=== PATIENT | female | born 1955 | race Caucasian/White ===

== ENCOUNTER 2022-01-08 09:56 | Inpatient (IN) | payer BC, SELFPAY ==
[~2022-01-08 09:56] MED LIST: Iopamidol-370 76% 500 ML 1 ML ONE
[2022-01-08 10:26] LABS: #Eosinphils 0.1 thou/uL (0.0-0.7); #Lymphocytes 2.3 thou/uL (1.20-3.40); #Monocytes 0.4 thou/uL (0.11-0.59); #Neutrophils 4.2 thou/uL (1.40-6.50); %Basophils 0.6 % (0.0-1.0); %Eosinophils 2.1 % (0.0-10.0); %Lymphocytes 32.8 % (21.0-51.0); %Monocytes 5.1 % (0.0-10.0); %Neutrophils 59.4 % (42.0-75.0); Hemoglobin 10.4 g/dL (12.0-16.0); Mean Corpuscular HGB CONC 31.2 g/dL (32.0-36.0); Mean Corpuscular Hemoglobin 28.2 pg (27.0-31.0); Mean Corpuscular Volume 90.5 fL (78.0-98.0); Mean Platelet Volume 8.2 fL (7.4-10.4); Platelet Count 304 thou/uL (130-400); RBC Distribution Width 13.1 % (11.5-14.5)
[2022-01-08] MEDS ORDERED: Tenecteplase 50 MG - STEMI KIT ONE (10:33)
[2022-01-08 10:39] LABS: Prothrombin Time 12.8 sec (12.0-14.7)
[2022-01-08 10:40] LABS: PTT 24.3 sec (22.9-36.1)
[2022-01-08 10:49] LABS: ALT (SGPT) 14 U/L (8-55); AST (SGOT) 21 U/L (5-34); Albumin 3.8 g/dL (3.4-4.8); Alkaline Phosphatase 97 U/L (40-110); Anion Gap 12 mmol/L (10-20); BUN (Urea Nitrogen) 13 mg/dL (9.8-20.1); Bilirubin, Total 0.9 mg/dL (0.2-1.2); Calc. Creatinine Clearance 0 mL/min (70-130); Calcium 9.3 mg/dL (7.8-10.44); Carbon Dioxide 25 mmol/L (23-31); Chloride 106 mmol/L (98-107); Estimated GFR 69; Globulin 3.2 g/dL (2.4-3.5); Glucose 148 mg/dL (80-115); Potassium 3.8 mmol/L (3.5-5.1); Sodium 139 mmol/L (136-145)
[2022-01-08] MEDS ORDERED: cloNIDine 0.1 MG TAB PO PRN (14:37)
[2022-01-08 14:41] VITALS: BMI 31.5
[2022-01-08] MEDS ORDERED: Dextrose 5% in Water 1,000 ML IV PRN (14:45)
[2022-01-08] MEDS ORDERED: Dextrose 50% Abboject 50 ML SYRINGE IVP PRN (14:45)
[2022-01-08] MEDS: metFORMIN 500 MG TAB PO SCH (17:13)
[2022-01-08 17:14] LABS: SARS-CoV-2 NAA Rapid Test Not Detected (NotDetected)
[2022-01-08] MEDS: Rosuvastatin 20 MG TAB PO SCH (20:30)
[2022-01-08] MEDS: Lisinopril 10 MG TAB PO SCH (20:31)
[2022-01-08] MEDS: HumuLIN 70/30 (300 UNITS/3 ML VIAL) SC SCH (20:31)
[2022-01-08] MEDS: Carvedilol 6.25 MG TAB PO SCH (20:31)
[2022-01-08] MEDS: Insulin Glargine 30 UNITS/0.3 ML VIAL SC SCH (20:32)
[2022-01-08] MEDS ORDERED: Insulin Glargine 30 UNITS/0.3 ML VIAL SC SCH (21:00)
[2022-01-08] MEDS ORDERED: Sulfameth/Trimethoprim DS 800-160mg TAB PO SCH (22:30)
[2022-01-08] MEDS ORDERED: Phenazopyridine HCl 100 MG TAB PO SCH (22:30)
[2022-01-08 22:36] LABS: Bacteria/HPF None Seen HPF (None Seen); Bilirubin Negative (Negative); Blood, Urine Negative (Negative); Clarity Clear (Clear); Glucose, Urine (Dipstick) 300 mg/dL (Negative); Ketone, Urine Negative (Negative); Leukocyte 500 Leu/uL (Negative); Nitrite Negative (Negative); Protein, Urine (Dipstick) 20 mg/dL (Neg-Trace); RBC/HPF 0-3 HPF (0-3); Specific Gravity, Urine 1.037 (1.002-1.036); Squamous Epithelial 0-3 HPF (0-3); Urobilinogen Normal mg/dL (Less than 2); WBC/HPF Greater than 50 HPF (0-3)
[2022-01-08 22:38] LABS: Urine Culture Reflex Yes Yes
[2022-01-09] MEDS: HumuLIN 70/30 (300 UNITS/3 ML VIAL) SC SCH ×2 (07:25→18:50)
[2022-01-09] MEDS: Empagliflozin 25 MG TAB PO SCH (07:49)
[2022-01-09] MEDS: metFORMIN 500 MG TAB PO SCH ×2 (07:49→18:50)
[2022-01-09] MEDS: Insulin Glargine 30 UNITS/0.3 ML VIAL SC SCH ×2 (09:20→21:21)
[2022-01-09] MEDS: valACYclovir 500 MG TAB PO SCH (09:24)
[2022-01-09] MEDS: Lisinopril 10 MG TAB PO SCH ×2 (09:24→21:22)
[2022-01-09] MEDS: Carvedilol 6.25 MG TAB PO SCH ×2 (09:24→21:22)
[2022-01-09] MEDS: Sulfameth/Trimethoprim DS 800-160mg TAB PO SCH ×2 (09:24→21:22)
[2022-01-09] MEDS: Phenazopyridine HCl 100 MG TAB PO SCH ×3 (09:34→21:23)
[2022-01-09] MEDS: Insulin Regular 300 UNITS/3 ML VIAL SC PRN (12:18)
[2022-01-09 12:45] LABS: #Eosinphils 0.2 thou/uL (0.0-0.7); #Lymphocytes 2.2 thou/uL (1.20-3.40); #Monocytes 0.3 thou/uL (0.11-0.59); #Neutrophils 4.1 thou/uL (1.40-6.50); %Basophils 0.5 % (0.0-1.0); %Eosinophils 2.6 % (0.0-10.0); %Lymphocytes 32.3 % (21.0-51.0); %Monocytes 4.3 % (0.0-10.0); %Neutrophils 60.3 % (42.0-75.0); Hemoglobin 10.2 g/dL (12.0-16.0); Mean Corpuscular HGB CONC 31.6 g/dL (32.0-36.0); Mean Corpuscular Hemoglobin 28.6 pg (27.0-31.0); Mean Corpuscular Volume 90.6 fL (78.0-98.0); Mean Platelet Volume 8.8 fL (7.4-10.4); Platelet Count 292 thou/uL (130-400); RBC Distribution Width 13.8 % (11.5-14.5); Red Blood Cell (RBC) Count 3.56 mill/uL (4.20-5.40); White Blood Cell (WBC) Count 6.7 thou/uL (4.8-10.8)
[2022-01-09 13:00] LABS: Anion Gap 13 mmol/L (10-20); BUN (Urea Nitrogen) 13 mg/dL (9.8-20.1); Calc. Creatinine Clearance 72 mL/min (70-130); Calcium 9.6 mg/dL (7.8-10.44); Carbon Dioxide 21 mmol/L (23-31); Chloride 107 mmol/L (98-107); Cholesterol 179 mg/dl (< 200 Desired); Estimated GFR 58; Glucose 221 mg/dL (80-115); HDL Cholesterol 45 mg/dL (>60 Neg Risk); LDL Cholesterol, Calculated 108 mg/dL; Sodium 137 mmol/L (136-145); Triglycerides 131 mg/dL (Less than 150)
[2022-01-09 13:08] LABS: Hemoglobin A1c 10.9 % (4.0-6.0)
[2022-01-09] MEDS: Rosuvastatin 20 MG TAB PO SCH (21:22)
[2022-01-10 05:13] LABS: #Eosinphils 0.1 thou/uL (0.0-0.7); #Lymphocytes 2.6 thou/uL (1.20-3.40); #Monocytes 0.3 thou/uL (0.11-0.59); #Neutrophils 4.2 thou/uL (1.40-6.50); %Basophils 0.5 % (0.0-1.0); %Eosinophils 1.7 % (0.0-10.0); %Lymphocytes 35.6 % (21.0-51.0); %Monocytes 4.3 % (0.0-10.0); Hemoglobin 9.9 g/dL (12.0-16.0); Mean Corpuscular HGB CONC 32.7 g/dL (32.0-36.0); Mean Corpuscular Hemoglobin 29.6 pg (27.0-31.0); Mean Corpuscular Volume 90.6 fL (78.0-98.0); Mean Platelet Volume 8.3 fL (7.4-10.4); Platelet Count 275 thou/uL (130-400); RBC Distribution Width 13.2 % (11.5-14.5); Red Blood Cell (RBC) Count 3.36 mill/uL (4.20-5.40); White Blood Cell (WBC) Count 7.3 thou/uL (4.8-10.8)
[2022-01-10 05:39] LABS: Anion Gap 12 mmol/L (10-20); BUN (Urea Nitrogen) 16 mg/dL (9.8-20.1); Calc. Creatinine Clearance 66 mL/min (70-130); Calcium 9.5 mg/dL (7.8-10.44); Carbon Dioxide 22 mmol/L (23-31); Chloride 108 mmol/L (98-107); Estimated GFR 52; Glucose 147 mg/dL (80-115); Potassium 4.1 mmol/L (3.5-5.1); Sodium 138 mmol/L (136-145)
[2022-01-10] MEDS: Sulfameth/Trimethoprim DS 800-160mg TAB PO SCH ×2 (09:30→21:02)
[2022-01-10] MEDS: Phenazopyridine HCl 100 MG TAB PO SCH ×3 (09:30→21:03)
[2022-01-10] MEDS: Lisinopril 10 MG TAB PO SCH ×2 (09:31→21:03)
[2022-01-10] MEDS: Carvedilol 6.25 MG TAB PO SCH ×2 (09:31→21:04)
[2022-01-10] MEDS: Empagliflozin 25 MG TAB PO SCH (09:31)
[2022-01-10] MEDS: metFORMIN 500 MG TAB PO SCH ×2 (09:31→17:10)
[2022-01-10] MEDS: valACYclovir 500 MG TAB PO SCH (09:31)
[2022-01-10] MEDS: Insulin Regular 300 UNITS/3 ML VIAL SC PRN (10:28)
[2022-01-10] MEDS: Insulin Glargine 30 UNITS/0.3 ML VIAL SC SCH ×2 (10:28→21:00)
[2022-01-10] MEDS: HumuLIN 70/30 (300 UNITS/3 ML VIAL) SC SCH ×2 (10:34→17:10)
[2022-01-10] MEDS ORDERED: Ondansetron PF 4 MG/2 ML Vial IVP PRN (12:00)
[2022-01-10] MEDS: Rosuvastatin 20 MG TAB PO SCH (21:03)
[2022-01-11] MEDS ORDERED: Aspirin 81 mg Enteric Coated Tablet PO SCH (09:00)
[2022-01-11] MEDS: Empagliflozin 25 MG TAB PO SCH (09:16)
[2022-01-11] MEDS: Sulfameth/Trimethoprim DS 800-160mg TAB PO SCH (09:16)
[2022-01-11] MEDS: metFORMIN 500 MG TAB PO SCH (09:16)
[2022-01-11] MEDS: Carvedilol 6.25 MG TAB PO SCH (09:16)
[2022-01-11] MEDS: Lisinopril 10 MG TAB PO SCH (09:17)
[2022-01-11] MEDS: valACYclovir 500 MG TAB PO SCH (09:17)
[2022-01-11] MEDS: Phenazopyridine HCl 100 MG TAB PO SCH ×2 (09:17→16:55)
[2022-01-11] MEDS: Insulin Glargine 30 UNITS/0.3 ML VIAL SC SCH (09:26)
[2022-01-11] MEDS: HumuLIN 70/30 (300 UNITS/3 ML VIAL) SC SCH ×2 (09:27→20:34)
[2022-01-11 12:15] VITALS: BP 112/53; TEMP 97.8
[2022-01-11] MEDS: Insulin Regular 300 UNITS/3 ML VIAL SC PRN (13:01)
== END 2022-01-11 16:47 | disposition home or self-care (01) | DRG 62 ==
LOC: ERS 09:56 → CCU 11:39 → NEURO 01-09 17:45
PROVIDERS: ADMIT Specialist; ATTEND Specialist
DX: I63.512 Cerebral infarction due to unspecified occlusion or stenosis of left middle cerebral artery (principal); G81.91 Hemiplegia, unspecified affecting right dominant side; Z20.822 Contact with and (suspected) exposure to COVID-19; R29.707 NIHSS score 7; E11.9 Type 2 diabetes mellitus without complications; I10 Essential (primary) hypertension; E78.5 Hyperlipidemia, unspecified; F43.10 Post-traumatic stress disorder, unspecified; E66.9 Obesity, unspecified; Z90.49 Acquired absence of other specified parts of digestive tract; Z95.5 Presence of coronary angioplasty implant and graft; Z79.4 Long term (current) use of insulin; Z79.84 Long term (current) use of oral hypoglycemic drugs; Z79.899 Other long term (current) drug therapy; Z91.14 Patient's other noncompliance with medication regimen; Z68.35 Body mass index [BMI] 35.0-35.9, adult
CPT/HCPCS: 36415; 36416; 37195; 70450; 70496; 70498; 70551; 71045; 80048; 80053; 80061; 81001; 83036; 84484; 85025; 85610; 85730; 87086; 93005; 93306; 94760; J1815; J2405; J3101; Q9967; U0002

== ENCOUNTER 2022-12-13 12:32 | Emergency (ER) | payer MEDICARE ==
[2022-12-13 14:08] LABS: #Eosinphils 0.3 thou/uL (0.0-0.7); #Monocytes 0.4 thou/uL (0.11-0.59); #Neutrophils 3.4 thou/uL (1.40-6.50); %Basophils 0.5 % (0.0-1.0); %Eosinophils 4.4 % (0.0-10.0); %Lymphocytes 34.2 % (21.0-51.0); %Monocytes 5.6 % (0.0-10.0); %Neutrophils 55.1 % (42.0-75.0); Hematocrit 26.1 % (36.0-47.0); Hemoglobin 7.5 g/dL (12.0-16.0); Mean Corpuscular HGB CONC 28.7 g/dL (32.0-36.0); Mean Corpuscular Hemoglobin 23.8 pg (27.0-31.0); Mean Corpuscular Volume 82.9 fl (78.0-98.0); Mean Platelet Volume 9.2 fL (7.4-10.4); Platelet Count 335 10x3/uL (130-400); RBC Distribution Width 16.4 % (11.5-14.5); Red Blood Cell (RBC) Count 3.15 mill/uL (4.20-5.40); White Blood Cell (WBC) Count 6.2 10x3/uL (4.8-10.8)
[2022-12-13 14:26] LABS: ALT (SGPT) 7 U/L (8-55); AST (SGOT) 10 U/L (5-34); Albumin 3.4 g/dL (3.4-4.8); Alkaline Phosphatase 90 U/L (40-110); Anion Gap 11 mmol/L (10-20); BUN (Urea Nitrogen) 10 mg/dL (9.8-20.1); Bilirubin, Total 0.3 mg/dL (0.2-1.2); Calc. Creatinine Clearance 0 mL/min (70-130); Calcium 9.5 mg/dL (7.8-10.44); Carbon Dioxide 23 mmol/L (23-31); Chloride 110 mmol/L (98-107); Estimated GFR 68; Glucose 100 mg/dL (80-115); Potassium 3.7 mmol/L (3.5-5.1); Protein, Total 6.4 g/dL (5.8-8.1); Sodium 140 mmol/L (136-145)
[2022-12-13 14:33] LABS: Burr Cells SLIGHT = 2-5 cells HPF (0-1); CellaVision Operator ID LAB.KB; Hypochromia SLIGHT = 6-15 cells HPF (0-5); Ovalocytes SLIGHT = 2-5 cells HPF (0-1); Platelet Adequacy Comment Platelets Normal; Polychromasia SLIGHT = 2-3 cells HPF (0-2)
[2022-12-13] MEDS ORDERED: Morphine 4 MG/ML VIAL ONE ×2 (14:50→16:39)
== END 2022-12-13 17:02 | disposition home or self-care (01) ==
LOC: ERS 12:32
DX: R10.2 Pelvic and perineal pain (principal); E11.9 Type 2 diabetes mellitus without complications; I10 Essential (primary) hypertension; Z79.4 Long term (current) use of insulin; Z79.899 Other long term (current) drug therapy
CPT/HCPCS: 36415; 80053; 85025; 96372; 99283; J2270

== ENCOUNTER 2023-01-03 11:53 | Outpatient (CLI) | payer MEDICARE, OTHER | END 2023-01-03 11:54 | disposition home or self-care (01) | LOC: PET 11:53 | PROVIDERS: ATTEND Obstetrics & Gynecology Gynecologic Oncology | DX: C51.9 Malignant neoplasm of vulva, unspecified (principal); C77.4 Secondary and unspecified malignant neoplasm of inguinal and lower limb lymph nodes; L04.1 Acute lymphadenitis of trunk | CPT/HCPCS: 78815; A9552 ==

== ENCOUNTER 2023-01-22 13:18 | Outpatient (CLI) | payer MEDICARE, OTHER ==
[2023-01-22] MEDS ORDERED: Magnevist 469MG/ML 20 ML VIAL ONE (16:09)
== END 2023-01-22 13:19 | disposition home or self-care (01) ==
LOC: BICMRI 13:18
PROVIDERS: ATTEND Radiology Radiation Oncology
DX: C51.9 Malignant neoplasm of vulva, unspecified (principal); S73.192A Other sprain of left hip, initial encounter
CPT/HCPCS: A9579

== ENCOUNTER 2023-01-30 10:50 | Outpatient (CLI) | payer MEDICARE ==
[2023-01-30 12:16] LABS: Bilirubin Neg (Negative); Blood, Urine 10 (Negative); Clarity Slightly Cloudy (Clear); Glucose, Urine (Dipstick) Normal (Negative); Ketone, Urine Negative (Negative); Leukocyte 500 (Negative); Nitrite Negative (Negative); Protein, Urine (Dipstick) 30 mg/dl (Neg-Trace); Urobilinogen Normal mg/dL (Less than 2)
[2023-01-30 12:28] LABS: Hematocrit 26.7 % (34.9-44.5); Hemoglobin 8.6 g/dL (12.0-15.5); Mean Corpuscular HGB CONC 32.2 g/dL (32.0-36.0); Mean Corpuscular Hemoglobin 27.8 pg (27.0-33.0); Mean Corpuscular Volume 86.4 fl (81.6-98.3); Mean Platelet Volume 11.5 fl (7.4-10.4); Platelet Count 70 10x3/uL (150-450); RBC Distribution Width 15.8 % (11.5-14.5); Red Blood Cell (RBC) Count 3.09 10x6/uL (3.90-5.03); White Blood Cell (WBC) Count 2.6 10x3/uL (3.5-10.5)
[2023-01-30 12:31] LABS: Bacteria/HPF 2+ HPF (None Seen); Mucous/LPF Rare LPF (<2+); RBC/HPF 0-3 HPF (0-3); WBC/HPF 21-50 HPF (0-3)
[2023-01-30 12:43] LABS: PTT 24.9 sec (22.0-33.0); Prothrombin Time 10.4 sec (9.5-12.1)
[2023-01-30 13:08] LABS: Anion Gap 13 mmol/L (10-20); BUN (Urea Nitrogen) 9 mg/dL (9.8-20.1); Calc. Creatinine Clearance 0 mL/min (70-130); Carbon Dioxide 25 mmol/L (23-31); Chloride 110 mmol/L (98-107); Estimated GFR 97; Glucose 86 mg/dL (80-115); Potassium 3.9 mmol/L (3.5-5.1); Sodium 144 mmol/L (136-145)
== END 2023-01-30 10:51 | disposition home or self-care (01) ==
LOC: LABBT 10:50
PROVIDERS: ATTEND Urology
DX: Z01.818 Encounter for other preprocedural examination (principal); C51.9 Malignant neoplasm of vulva, unspecified
CPT/HCPCS: 80048; 81001; 85027; 85610; 85730; 87086; 93005; 93010

== ENCOUNTER 2023-02-05 07:28 | Day surgery (SDC) | payer MEDICARE ==
[2023-01-30 11:20] VITALS: BMI 34.0
[2023-02-05] MEDS ORDERED: Vancomycin 1 GM/200 ML (FROZEN) BAG ONE (08:36)
[2023-02-05 08:41] LABS: #Eosinphils 0.1 thou/uL (0.0-0.7); #Monocytes 0.4 thou/uL (0.11-0.59); #Neutrophils 2.6 thou/uL (1.40-6.50); %Basophils 0.5 % (0.0-1.0); %Eosinophils 1.7 % (0.0-10.0); %Lymphocytes 26.8 % (21.0-51.0); %Neutrophils 61.8 % (42.0-75.0); Hemoglobin 8.4 g/dL (12.0-16.0); Mean Corpuscular HGB CONC 31.1 g/dL (32.0-36.0); Mean Corpuscular Hemoglobin 27.8 pg (27.0-31.0); Mean Corpuscular Volume 89.4 fl (78.0-98.0); Mean Platelet Volume 10.5 fL (7.4-10.4); Platelet Count 191 10x3/uL (130-400); RBC Distribution Width 17.8 % (11.5-14.5); Red Blood Cell (RBC) Count 3.02 mill/uL (4.20-5.40); White Blood Cell (WBC) Count 4.2 10x3/uL (4.8-10.8)
[2023-02-05] MEDS ORDERED: SUGAMMADEX SODIUM 200 MG/2 ML VIAL ONE (09:05)
[2023-02-05] MEDS ORDERED: fentaNYL PF 100 MCG/2 ML SYRINGE ONE (09:05)
[2023-02-05] MEDS ORDERED: LevoFLOXacin 500 mg/D5W 100 ML BAG ONE (09:19)
[2023-02-05] MEDS ORDERED: Ondansetron PF 4 MG/2 ML Vial ONE (09:36)
[2023-02-05] MEDS ORDERED: Lidocaine 1% PF 5 ML VIAL ONE (09:36)
[2023-02-05] MEDS ORDERED: PROPOFOL 200 MG/20 ML VIAL ONE (09:36)
[2023-02-05] MEDS ORDERED: Dexamethasone 20 MG/5 ML VIAL ONE (09:36)
[2023-02-05] MEDS ORDERED: fentaNYL 50 mcg/mL 1 mL Vial ONE ×2 (10:08→10:23)
[2023-02-05] MEDS ORDERED: HYDROmorphone 0.5 MG/0.5 ML SYRINGE ONE (10:28)
[2023-02-05] MEDS ORDERED: Phenazopyridine HCl 100 MG TAB ONE (10:29)
[2023-02-05] MEDS ORDERED: Oxybutynin 5 MG TAB ONE (10:30)
== END 2023-02-05 13:12 | disposition home or self-care (01) ==
LOC: SDC 07:28
PROVIDERS: ATTEND Urology
PROC: 0T7D8ZZ Dilation of Urethra, Via Natural or Artificial Opening Endoscopic (ICD-10-PCS; principal; 2023-02-05)
DX: C51.9 Malignant neoplasm of vulva, unspecified (principal); E11.9 Type 2 diabetes mellitus without complications; I10 Essential (primary) hypertension; E78.5 Hyperlipidemia, unspecified; F43.10 Post-traumatic stress disorder, unspecified; I25.10 Atherosclerotic heart disease of native coronary artery without angina pectoris; Z87.59 Personal history of other complications of pregnancy, childbirth and the puerperium; Z90.49 Acquired absence of other specified parts of digestive tract; Z79.4 Long term (current) use of insulin; Z79.899 Other long term (current) drug therapy
CPT/HCPCS: 52281; 82962; 85025; 86850; 86900; 86901; J3010; J3370; 36416; J1100; J1170; J1956; J2405; J2704

== ENCOUNTER 2023-02-13 08:25 | Day surgery (SDC) | payer MEDICARE ==
[2023-02-13 09:34] VITALS: BP 126/69; TEMP 98
[2023-02-13] MEDS ORDERED: FLU VACC QS2023(65UP)/MF59C/PF 60 MCG/0.5 ML SYRINGE IM ONE (12:00)
== END 2023-02-13 12:04 | disposition home or self-care (01) ==
LOC: CT 08:25
PROVIDERS: ATTEND Urology
PROC: 0T9B30Z Drainage of Bladder with Drainage Device, Percutaneous Approach (ICD-10-PCS; principal; 2023-02-13)
DX: C51.9 Malignant neoplasm of vulva, unspecified (principal); E11.9 Type 2 diabetes mellitus without complications; R30.0 Dysuria; I10 Essential (primary) hypertension; F43.10 Post-traumatic stress disorder, unspecified; I25.10 Atherosclerotic heart disease of native coronary artery without angina pectoris; E78.5 Hyperlipidemia, unspecified; Z86.73 Personal history of transient ischemic attack (TIA), and cerebral infarction without residual deficits; Z90.49 Acquired absence of other specified parts of digestive tract; Z79.4 Long term (current) use of insulin; Z79.899 Other long term (current) drug therapy
CPT/HCPCS: 51102; 77002; C2627

== ENCOUNTER 2023-02-19 12:46 | Outpatient (CLI) | payer MEDICARE, OTHER | END 2023-02-19 12:47 | disposition home or self-care (01) | LOC: BICMRI 12:46 | PROVIDERS: ATTEND Radiology Radiation Oncology | DX: C51.8 Malignant neoplasm of overlapping sites of vulva (principal); R59.0 Localized enlarged lymph nodes | CPT/HCPCS: 72197; 78815; A9552 ==

== ENCOUNTER 2023-02-28 11:37 | Day surgery (SDC) | payer MEDICARE, OTHER ==
[2023-02-28] MEDS ORDERED: diphenhydrAMINE 25 MG CAP PO SCH (12:15)
[2023-02-28] MEDS ORDERED: Acetaminophen 500 MG TAB PO SCH (12:15)
[2023-02-28] MEDS ORDERED: diphenhydrAMINE 25 MG CAP ONE (12:28)
[2023-02-28] MEDS ORDERED: Acetaminophen 500 MG TAB ONE (12:28)
[2023-02-28] MEDS ORDERED: FLU VACC QS2023(65UP)/MF59C/PF 60 MCG/0.5 ML SYRINGE IM ONE (12:45)
[2023-02-28 13:43] VITALS: TEMP 98
[2023-02-28 15:32] VITALS: BP 160/77
== END 2023-02-28 15:22 | disposition home or self-care (01) ==
LOC: ONC/OP 11:37
PROVIDERS: ATTEND Internal Medicine Hematology & Oncology
DX: D64.9 Anemia, unspecified (principal); D69.59 Other secondary thrombocytopenia
CPT/HCPCS: 36430; 86850; 86900; 86901; 86920; 90694; G0008; P9016; 90471; J1642

== ENCOUNTER 2023-03-03 14:42 | Day surgery (SDC) | payer MEDICARE, OTHER ==
[2023-03-03] MEDS ORDERED: Acetaminophen 500 MG TAB ONE (14:56)
[2023-03-03] MEDS ORDERED: diphenhydrAMINE 25 MG CAP ONE (14:56)
[2023-03-03] MEDS ORDERED: Acetaminophen 500 MG TAB PO SCH (15:00)
[2023-03-03] MEDS ORDERED: diphenhydrAMINE 25 MG CAP PO SCH (15:00)
[2023-03-03 17:15] VITALS: BP 145/66; TEMP 98.2
== END 2023-03-03 17:21 | disposition home or self-care (01) ==
LOC: ONC/OP 14:42
PROVIDERS: ATTEND Internal Medicine Hematology & Oncology
DX: D64.9 Anemia, unspecified (principal); D69.59 Other secondary thrombocytopenia
CPT/HCPCS: 36430; 77386; 82728; 83540; 83550; 86850; 86900; 86901; 86920; P9016

== ENCOUNTER 2023-03-24 12:48 | Day surgery (SDC) | payer MEDICARE, OTHER ==
[2023-03-24] MEDS ORDERED: diphenhydrAMINE 25 MG CAP PO SCH (13:45)
[2023-03-24] MEDS ORDERED: Acetaminophen 500 MG TAB PO SCH (13:45)
[2023-03-24] MEDS ORDERED: Acetaminophen 500 MG TAB ONE (13:58)
[2023-03-24 17:02] VITALS: BP 128/63; TEMP 98
== END 2023-03-24 16:57 | disposition home or self-care (01) ==
LOC: ONC/OP 12:48
PROVIDERS: ATTEND Internal Medicine Hematology & Oncology
DX: D64.9 Anemia, unspecified (principal); D69.59 Other secondary thrombocytopenia
CPT/HCPCS: 36430; 80048; 82728; 83735; 86850; 86900; 86901; 86920; P9016

== ENCOUNTER 2023-04-02 11:30 | Day surgery (SDC) | payer MEDICARE, OTHER ==
[2023-04-02] MEDS ORDERED: Acetaminophen 500 MG TAB PO SCH (12:00)
[2023-04-02] MEDS ORDERED: diphenhydrAMINE 25 MG CAP PO SCH (12:15)
[2023-04-02] MEDS ORDERED: Acetaminophen 500 MG TAB ONE (12:27)
[2023-04-02 17:52] VITALS: BP 125/58; TEMP 98.5
== END 2023-04-02 17:54 | disposition home or self-care (01) ==
LOC: ONC/OP 11:30
PROVIDERS: ATTEND Internal Medicine Hematology & Oncology
DX: D64.9 Anemia, unspecified (principal); D69.59 Other secondary thrombocytopenia
CPT/HCPCS: 36430; 86850; 86900; 86901; 86920; P9016; P9035; 83735

== ENCOUNTER 2023-05-29 08:56 | Day surgery (SDC) | payer MEDICARE, OTHER ==
[~2023-05-29 08:56] MED LIST changes: -Iopamidol-370 76% 500 ML 1 ML ONE; +diphenhydrAMINE 25 MG CAP PO SCH
[2023-05-29] MEDS ORDERED: Acetaminophen 500 MG TAB ONE (09:58)
[2023-05-29] MEDS: Acetaminophen 500 MG TAB PO SCH (10:01)
[2023-05-29 13:45] VITALS: BP 120/59; TEMP 98
== END 2023-05-29 13:22 | disposition home or self-care (01) ==
LOC: ONC/OP 08:56
PROVIDERS: ATTEND Internal Medicine Hematology & Oncology
DX: D64.9 Anemia, unspecified (principal); D69.6 Thrombocytopenia, unspecified
CPT/HCPCS: 36430; 86850; 86900; 86901; 86920; P9016; J1642

== ENCOUNTER 2023-06-06 13:26 | Emergency (ER) | payer MEDICARE, OTHER ==
[2023-06-06 14:13] LABS: #Eosinphils 0.2 thou/uL (0.0-0.7); #Monocytes 0.4 thou/uL (0.11-0.59); #Neutrophils 3.9 thou/uL (1.40-6.50); %Basophils 0.4 % (0.0-1.0); %Eosinophils 3.7 % (0.0-10.0); %Lymphocytes 12.7 % (21.0-51.0); %Monocytes 6.8 % (0.0-10.0); Hematocrit 25.4 % (36.0-47.0); Hemoglobin 8.5 g/dL (12.0-16.0); Mean Corpuscular HGB CONC 33.5 g/dL (32.0-36.0); Mean Corpuscular Hemoglobin 34.4 pg (27.0-31.0); Mean Corpuscular Volume 102.8 fl (78.0-98.0); Mean Platelet Volume 10.3 fL (7.4-10.4); Platelet Count 135 10x3/uL (130-400); RBC Distribution Width 17.9 % (11.5-14.5); Red Blood Cell (RBC) Count 2.47 mill/uL (4.20-5.40); White Blood Cell (WBC) Count 5.1 10x3/uL (4.8-10.8)
[2023-06-06 14:38] LABS: Anion Gap 9 mmol/L (10-20); BUN (Urea Nitrogen) 9 mg/dL (9.8-20.1); Calc. Creatinine Clearance 0 mL/min (70-130); Calcium 9.4 mg/dL (7.8-10.44); Carbon Dioxide 25 mmol/L (23-31); Chloride 106 mmol/L (98-107); Estimated GFR 80; Glucose 295 mg/dL (80-115); Lipase 5 U/L (8-78); Potassium 3.8 mmol/L (3.5-5.1); Sodium 136 mmol/L (136-145)
[2023-06-06 14:43] LABS: Troponin I Less than 0.010 ng/mL (< 0.028)
[2023-06-06] MEDS ORDERED: Iopamidol-370 76% 500 ML MDV (1 ML CHARGE) ONE (14:57)
[2023-06-06 15:39] LABS: Bacteria/HPF None Seen HPF (None Seen); Bilirubin Negative (Negative); Blood, Urine Trace (Negative); CAUTI Indications for Culture Dysuria,urgency,freq; Clarity Turbid (Clear); Glucose, Urine (Dipstick) Greater than 1000 mg/dL (Negative); Ketone, Urine Negative (Negative); Leukocyte 500 Leu/uL (Negative); Nitrite Negative (Negative); Protein, Urine (Dipstick) Negative (Neg-Trace); RBC/HPF Greater than 50 HPF (0-3); Specific Gravity, Urine 1.022 (1.002-1.036); Squamous Epithelial None Seen HPF (0-3); Urobilinogen Normal mg/dL (Less than 2); WBC/HPF Greater than 50 HPF (0-3); pH, Urine 6.5 (5.0-9.0)
[2023-06-06 15:40] LABS: Urine Culture Reflex Yes Yes; Yeast-Budding 3+ HPF (None Seen)
== END 2023-06-06 16:45 | disposition home or self-care (01) ==
LOC: ERS 13:26
DX: J90 Pleural effusion, not elsewhere classified (principal); C51.9 Malignant neoplasm of vulva, unspecified; R91.8 Other nonspecific abnormal finding of lung field; E11.9 Type 2 diabetes mellitus without complications; I10 Essential (primary) hypertension; I63.9 Cerebral infarction, unspecified; Z96.0 Presence of urogenital implants; Z79.4 Long term (current) use of insulin; Z79.899 Other long term (current) drug therapy
CPT/HCPCS: 36415; 71275; 74177; 80048; 81001; 83605; 83690; 83880; 84484; 85025; 87086; 93005

== ENCOUNTER 2023-06-10 20:00 | Inpatient (IN) | payer MEDICARE ==
[2023-06-10] MEDS ORDERED: HYDROcodone/Acetaminophen 10/325 mg Tablet ONE (21:14)
[2023-06-10 21:30] LABS: #Eosinphils 0.3 thou/uL (0.0-0.7); #Monocytes 0.5 thou/uL (0.11-0.59); #Neutrophils 4.3 thou/uL (1.40-6.50); %Basophils 0.3 % (0.0-1.0); %Eosinophils 5.2 % (0.0-10.0); %Lymphocytes 11.4 % (21.0-51.0); %Monocytes 7.8 % (0.0-10.0); Hematocrit 24.9 % (36.0-47.0); Hemoglobin 8.3 g/dL (12.0-16.0); Mean Corpuscular HGB CONC 33.3 g/dL (32.0-36.0); Mean Platelet Volume 10.1 fL (7.4-10.4); Platelet Count 168 10x3/uL (130-400); RBC Distribution Width 16.5 % (11.5-14.5); Red Blood Cell (RBC) Count 2.44 mill/uL (4.20-5.40); White Blood Cell (WBC) Count 5.8 10x3/uL (4.8-10.8)
[2023-06-10 21:55] LABS: ALT (SGPT) Less than 7 U/L (8-55); AST (SGOT) 7 U/L (5-34); Albumin 2.8 g/dL (3.4-4.8); Alkaline Phosphatase 106 U/L (40-110); Anion Gap 8 mmol/L (10-20); BUN (Urea Nitrogen) 10 mg/dL (9.8-20.1); Bilirubin, Total 0.5 mg/dL (0.2-1.2); Calc. Creatinine Clearance 0 mL/min (70-130); Carbon Dioxide 27 mmol/L (23-31); Chloride 104 mmol/L (98-107); Estimated GFR 95; Globulin 2.5 g/dL (2.4-3.5); Glucose 100 mg/dL (80-115); Magnesium 1.5 mg/dL (1.6-2.6); Protein, Total 5.3 g/dL (5.8-8.1); Sodium 135 mmol/L (136-145)
[2023-06-10 21:57] LABS: Troponin I Less than 0.010 ng/mL (< 0.028)
[2023-06-11] MEDS ORDERED: Glucagon 1 MG/ML KIT IM PRN (00:01)
[2023-06-11] MEDS ORDERED: Dextrose 50% Abboject 50 ML SYRINGE SLOW IVP PRN (00:01)
[2023-06-11] MEDS ORDERED: HumaLOG 300 UNITS/3 ML VIAL SC PRN (00:01)
[2023-06-11] MEDS ORDERED: Dextrose 5% in Water 1,000 ML IV PRN (00:01)
[2023-06-11] MEDS ORDERED: Acetaminophen 650 MG Suppository PR PRN (00:08)
[2023-06-11] MEDS ORDERED: Acetaminophen 325 MG TAB PO PRN (00:08)
[2023-06-11 00:49] LABS: Influenza A by NAA Not Detected (NotDetected); SARS-CoV-2 NAA Rapid Test Not Detected (NotDetected)
[2023-06-11 02:23] VITALS: BMI 29.5
[2023-06-11 04:18] LABS: #Eosinphils 0.3 thou/uL (0.0-0.7); #Monocytes 0.4 thou/uL (0.11-0.59); #Neutrophils 3.3 thou/uL (1.40-6.50); %Basophils 0.4 % (0.0-1.0); %Eosinophils 5.9 % (0.0-10.0); %Lymphocytes 12.4 % (21.0-51.0); %Monocytes 8.9 % (0.0-10.0); Hematocrit 24.8 % (36.0-47.0); Hemoglobin 8.1 g/dL (12.0-16.0); Mean Corpuscular HGB CONC 32.7 g/dL (32.0-36.0); Mean Corpuscular Hemoglobin 33.5 pg (27.0-31.0); Mean Corpuscular Volume 102.5 fl (78.0-98.0); Platelet Count 157 10x3/uL (130-400); RBC Distribution Width 16.3 % (11.5-14.5); Red Blood Cell (RBC) Count 2.42 mill/uL (4.20-5.40); White Blood Cell (WBC) Count 4.6 10x3/uL (4.8-10.8)
[2023-06-11 04:44] LABS: Anion Gap 9 mmol/L (10-20); BUN (Urea Nitrogen) 9 mg/dL (9.8-20.1); Calc. Creatinine Clearance 84 mL/min (70-130); Calcium 10.4 mg/dL (7.8-10.44); Carbon Dioxide 27 mmol/L (23-31); Chloride 104 mmol/L (98-107); Estimated GFR 89; Glucose 146 mg/dL (80-115); Potassium 3.6 mmol/L (3.5-5.1); Sodium 136 mmol/L (136-145)
[2023-06-11] MEDS: Morphine 4 MG/ML VIAL SLOW IVP PRN (05:45)
[2023-06-11] MEDS ORDERED: Electrolyte Replacement Protocol 1 EACH FS SCH (06:45)
[2023-06-11 07:25] LABS: Magnesium 1.4 mg/dL (1.6-2.6)
[2023-06-11] MEDS ORDERED: traZODone HCl 50 MG TAB PO PRN (07:28)
[2023-06-11] MEDS ORDERED: Lorazepam 1 MG TAB PO PRN (07:28)
[2023-06-11] MEDS ORDERED: Prochlorperazine Maleate 5 MG TAB PO PRN (07:44)
[2023-06-11] MEDS: HYDROcodone/Acetaminophen 10/325 mg Tablet PO PRN ×2 (09:00→09:11)
[2023-06-11] MEDS: Gabapentin 400 MG CAP PO SCH (09:01)
[2023-06-11] MEDS: Enoxaparin 40 MG (0.4 mL) SYRINGE SC SCH (09:02)
[2023-06-11] MEDS: Oxybutynin ER 5 MG TAB PO SCH (09:02)
[2023-06-11] MEDS: Insulin Glargine 30 UNITS/0.3 ML VIAL SC SCH (09:02)
[2023-06-11] MEDS: Sertraline 100 MG TAB PO SCH (09:02)
[2023-06-11] MEDS: Magnesium 2 GM/50 ML(in water) 2 GM in Premix 1 BAG IVPB SCH ×2 (09:03→11:37)
[2023-06-11] MEDS: Carvedilol 3.125 MG TAB PO SCH (17:10)
[2023-06-11] MEDS: HumaLOG 300 UNITS/3 ML VIAL SC PRN (21:34)
[2023-06-11] MEDS: Rosuvastatin 20 MG TAB PO SCH (21:34)
[2023-06-11] MEDS: Insulin NPH Human Isophane 100 UNITS/ML (10 ML VIAL) SC SCH (21:35)
[2023-06-11] MEDS: diphenhydrAMINE 25 MG CAP PO SCH (22:46)
[2023-06-12] MEDS: Oxybutynin 5 MG TAB PO PRN (00:31)
[2023-06-12 04:39] LABS: #Eosinphils 0.2 thou/uL (0.0-0.7); #Monocytes 0.5 thou/uL (0.11-0.59); %Basophils 0.3 % (0.0-1.0); %Eosinophils 3.2 % (0.0-10.0); %Lymphocytes 8.5 % (21.0-51.0); %Monocytes 7.8 % (0.0-10.0); %Neutrophils 79.9 % (42.0-75.0); Hematocrit 27.1 % (36.0-47.0); Hemoglobin 8.9 g/dL (12.0-16.0); Mean Corpuscular HGB CONC 32.8 g/dL (32.0-36.0); Mean Corpuscular Hemoglobin 34.1 pg (27.0-31.0); Mean Corpuscular Volume 103.8 fl (78.0-98.0); Mean Platelet Volume 10.2 fL (7.4-10.4); Platelet Count 182 10x3/uL (130-400); RBC Distribution Width 16.2 % (11.5-14.5); Red Blood Cell (RBC) Count 2.61 mill/uL (4.20-5.40); White Blood Cell (WBC) Count 6.3 10x3/uL (4.8-10.8)
[2023-06-12 05:13] LABS: Anion Gap 8 mmol/L (10-20); BUN (Urea Nitrogen) 10 mg/dL (9.8-20.1); Calc. Creatinine Clearance 95 mL/min (70-130); Calcium 11.3 mg/dL (7.8-10.44); Carbon Dioxide 30 mmol/L (23-31); Chloride 103 mmol/L (98-107); Estimated GFR 97; Glucose 155 mg/dL (80-115); Magnesium 2.3 mg/dL (1.6-2.6); Potassium 4.2 mmol/L (3.5-5.1); Sodium 137 mmol/L (136-145)
[2023-06-12] MEDS: Empagliflozin 10 MG TAB PO SCH (08:59)
[2023-06-12 12:08] LABS: ALT (SGPT) Less than 7 U/L (8-55); AST (SGOT) 9 U/L (5-34); Albumin 2.7 g/dL (3.4-4.8); Alkaline Phosphatase 107 U/L (40-110); Bilirubin, Direct 0.2 mg/dL (0.1-0.3); Bilirubin, Total 0.3 mg/dL (0.2-1.2); Protein, Total 5.9 g/dL (5.8-8.1)
[2023-06-12 12:32] LABS: T4 6.68 ug/dL (4.87-11.72); Thyroid Stimulating Hormone 1.4043 uIU/mL (0.35-4.94)
[2023-06-12 15:31] VITALS: BP 159/82; TEMP 98.1
[2023-06-12] MEDS: Ondansetron ODT 4 MG TAB PO PRN (17:37)
[2023-06-12] MEDS: Ondansetron PF 4 MG/2 ML Vial IVP PRN (18:09)
== END 2023-06-12 18:50 | disposition home or self-care (01) | DRG 754 ==
LOC: ERS 20:00 → SURG A 23:31
PROVIDERS: ADMIT Student in an Organized Health Care Education/Training Program; ATTEND Emergency Medicine
DX: C51.9 Malignant neoplasm of vulva, unspecified (principal); J96.01 Acute respiratory failure with hypoxia; I50.9 Heart failure, unspecified; E11.9 Type 2 diabetes mellitus without complications; I11.0 Hypertensive heart disease with heart failure; D53.9 Nutritional anemia, unspecified; G47.33 Obstructive sleep apnea (adult) (pediatric); Z86.73 Personal history of transient ischemic attack (TIA), and cerebral infarction without residual deficits; Z79.899 Other long term (current) drug therapy; Z79.4 Long term (current) use of insulin; Z92.3 Personal history of irradiation; Z90.49 Acquired absence of other specified parts of digestive tract; Z98.891 History of uterine scar from previous surgery; Z98.890 Other specified postprocedural states; Z11.52 Encounter for screening for COVID-19
CPT/HCPCS: 36415; 36416; 71045; 80048; 80053; 80076; 82248; 83605; 83615; 83735; 84100; 84436; 84443; 84484; 84550; 85025; 87040; 93005; J1650; J1815; J2270; J2405; J3475; Q0162